=== PATIENT | female | born 1980 | race African-American/Black ===

== ENCOUNTER 2018-01-29 11:26 | Emergency (ER) | payer SELFPAY ==
[2018-01-29 11:32] VITALS: BP 148/91; PULSE 107; TEMP 98.2; BMI 38.0
[2018-01-29] MEDS ORDERED: SODIUM CHLORIDE 0.9% 500 ML INFUS.BAG IV ONE (12:09)
[2018-01-29] MEDS ORDERED: ONDANSETRON *ODT* 4 MG TABLET SL ONE (12:14)
[2018-01-29 12:29] LABS: BASO % 1.1 % (0-2.0); EOS % 0.9 % (0-4.5); MCHC 32.9 g/dl (32.0-36.0); RBC 4.76 M/mm3 (3.60-5.2); RDW 15.3 % (11.6-15.6); WHITE BLOOD COUNT 8.6 K/mm3 (4.0-10.0)
[2018-01-29 12:31] LABS: URINE APPEARANCE CLEAR; URINE BILIRUBIN NEGATIVE (NEGATIVE); URINE BLOOD NEGATIVE (NEGATIVE); URINE COLOR YELLOW; URINE GLUCOSE (UA) NEGATIVE (NEGATIVE); URINE KETONE NEGATIVE (NEGATIVE); URINE LEUK ESTERASE NEGATIVE (NEGATIVE); URINE NITRITE NEGATIVE (NEGATIVE); URINE PROTEIN NEGATIVE (NEGATIVE); URINE UROBILINOGEN NEGATIVE mg/dL (0.2-1.0)
[2018-01-29 12:42] LABS: HEMATOCRIT 38.6 % (32.4-45.2); HEMOGLOBIN 12.7 GM/dL (10.7-15.3); LYMPH % 28.8 % (8-40); MCH 26.7 pg (25.7-33.7); MEAN CELL VOLUME 81.1 fl (80-96); MEAN PLT VOLUME 7.9 fl (7.5-11.1); MONO % 8.2 % (3.8-10.2); PLATELET COUNT 388 K/MM3 (134-434)
[2018-01-29] MEDS ORDERED: ONDANSETRON *ODT* 4 MG TABLET ONE (12:47)
[2018-01-29 12:57] LABS: ALBUMIN 3.7 g/dl (3.4-5.0); ANION GAP 6 (8-16); BLOOD UREA NITROGEN 13 mg/dL (7-18); CALCIUM 8.9 mg/dL (8.5-10.1); CHLORIDE 106 mmol/L (98-107); CO2 30 mmol/L (21-32); GLUCOSE,RANDOM 86 mg/dL (74-106); POTASSIUM 3.8 mmol/L (3.5-5.1); SODIUM 142 mmol/L (136-145)
--- NOTE | 2018-01-29 13:01 | PDOC ---
History of Present Illness - General Chief Complaint: Respiratory Stated Complaint: FLU LIKE SYMPTOMS Time Seen by Provider: 01/29/18 11:52 History Source: Patient Exam Limitations: No Limitations - History of Present Illness Initial Comments: 01/29/18 12:57 Patient is a 37 year old female, denies any significant medical history currently on no medication presents with nausea, vomiting, fever. No body aches , no headache, no urinary symptoms. Upper abdominal pain. No cough, denies chest pain or shortness of breath. Past Medical History: [Denies]. Allergies: No known allergies Medications: [None] Family History: Non-contributory Social History: Denies smoking, alcohol use, or IVDU Review of Systems GENERAL/CONSTITUTIONAL: [Fever and chills. No weakness. No weight change.] HEAD, EYES, EARS, NOSE AND THROAT: [No change in vision. No ear pain or discharge. No sore throat. ] CARDIOVASCULAR: [No chest pain or shortness of breath.] RESPIRATORY: [No cough, wheezing, or hemoptysis.] GASTROINTESTINAL: [No nausea, vomiting, diarrhea or constipation. No rectal bleeding.] GENITOURINARY: [Nausea and vomiting, no diarrhea] MUSCULOSKELETAL: [No joint or muscle swelling or pain. No neck or back pain.] SKIN AND BREASTS: [No rash or easy bruising.] NEUROLOGIC: [No headache, vertigo, loss of consciousness, or loss of sensation.] PSYCHIATRIC: [No depression or anxiety.] ENDOCRINE: [No increased thirst. No abnormal weight change.] HEMATOLOGIC/LYMPHATIC: [No anemia, easy bleeding, or history of blood clots.] ALLERGIC/IMMUNOLOGIC: [No hives or skin allergy. No latex allergy.] Physical Exam: GENERAL: [The patient is awake, alert, and fully oriented, in no acute distress. ] EYES: [Pupils equal, round and reactive to light, extraocular movements intact, sclera anicteric, conjunctiva clear.] ENT: [Ears normal, nares patent, oropharynx clear without exudates. Moist mucous membranes. No uvula deviation] NECK: [Normal range of motion, supple without lymphadenopathy, JVD, or masses.] LUNGS: [Breath sounds equal, clear to auscultation bilaterally. No wheezes, and no crackles.] HEART: [Regular rate and rhythm, normal S1 and S2 without murmur, rub or gallop. ] ABDOMEN: [Soft, nontender, normoactive bowel sounds. No guarding, no rebound. No masses. No bruising or abrasions] MUSCULOSKELETAL: [Normal range of motion, no edema. No clubbing or cyanosis. No cords, erythema, or tenderness. No CVA Tenderness with fist.] NEUROLOGICAL: [Cranial nerves II through XII grossly intact. Normal speech, normal gait.] SKIN: [Warm, Dry, normal turgor, no rashes or lesions noted.] Past History - Past Medical History Allergies/Adverse Reactions: Allergies Allergy/AdvReac Type Severity Reaction Status Date / Time No Known Allergies Allergy Verified 01/29/18 11:32 Home Medications: Ambulatory Orders NK [No Known Home Medication] 01/29/18 COPD: No Other medical history: DENIES MEDICAL HX - Suicide/Smoking/Psychosocial Hx Smoking History: Current every day smoker Number of Cigarettes Smoked Daily: 4 Information on smoking cessation initiated: No Hx Alcohol Use: Yes Drug/Substance Use Hx: No *Physical Exam - Vital Signs Last Vital Signs Temp Pulse Resp BP Pulse Ox 98.2 F 107 H 16 148/91 100 01/29/18 11:29 01/29/18 11:29 01/29/18 11:29 01/29/18 11:29 01/29/18 11:29 ED Treatment Course - LABORATORY CBC & Chemistry Diagram: 01/29/18 12:05 01/29/18 12:05 - ADDITIONAL ORDERS Additional order review: Laboratory Results 01/29/18 12:05 Urine Color Yellow Urine Appearance Clear Urine pH 6.0 Ur Specific [place] 1.025 Urine Protein Negative Urine Glucose (UA) Negative Urine Ketones Negative Urine Blood Negative Urine Nitrite Negative Urine Bilirubin Negative Urine Urobilinogen Negative Ur Leukocyte Esterase Negative 01/29/18 12:05 RBC 4.76 MCV 81.1 MCHC 32.9 RDW 15.3 MPV 7.9 Neutrophils % 61.0 Lymphocytes % 28.8 Monocytes % 8.2 Eosinophils % 0.9 Basophils % 1.1 - Medications Given in the ED: ED Medications Discontinued Medications Generic Name Dose Route Start Last Admin Trade Name Freq PRN Reason Stop Dose Admin Ondansetron HCl 4 mg 01/29/18 12:14 01/29/18 12:56 Zofran Odt - SL 01/29/18 12:15 4 mg ONCE ONE Administration Sodium Chloride 1,000 ml 01/29/18 12:09 01/29/18 12:26 Normal Saline - IV 01/29/18 12:10 1,000 ml ONCE ONE Administration Medical Decision Making - Medical Decision Making 01/29/18 14:35 A/P: Patient presents with tactile fever, generalized abdominal pain worse to upper abdomen, vomiting, nausea, no diarrhea. Patient with influenza-type illness, 2 years ago her son from H1N1 patient has been exposed to influenza and thinks she may have the flu. Works in a daycare. Because of the generalized abdominal pain and nausea will perform CBC, CMP, urinalysis, urine culture, saline bolus, Hep-Lock. Laboratory Results - last 24 hr 01/29/18 01/29/18 01/29/18 12:05 12:05 12:05 WBC 8.6 RBC 4.76 Hgb 12.7 Hct 38.6 MCV 81.1 MCH 26.7 MCHC 32.9 RDW 15.3 Plt Count 388 MPV 7.9 Neutrophils % 61.0 Lymphocytes % 28.8 Monocytes % 8.2 Eosinophils % 0.9 Basophils % 1.1 Sodium 142 Potassium 3.8 Chloride 106 Carbon Dioxide 30 Anion Gap 6 L BUN 13 Creatinine 0.8 Creat Clearance w eGFR > 60 Random Glucose 86 Calcium 8.9 Total Bilirubin 0.4 AST 6 L ALT 17 Alkaline Phosphatase 71 Total Protein 7.6 Albumin 3.7 Urine Color Yellow Urine Appearance Clear Urine pH 6.0 Ur Specific [place] 1.025 Urine Protein Negative Urine Glucose (UA) Negative Urine Ketones Negative Urine Blood Negative Urine Nitrite Negative Urine Bilirubin Negative Urine Urobilinogen Negative Ur Leukocyte Esterase Negative Urine HCG, Qual Negative We are unable to test for influenza patient is made aware. CBC reveals no anemia, leukocytosis, bandemia, lymphocytosis, or neutrophilia. Platelets are within normal values at this time. CMP reveals no electrolyte imbalance, there is no transaminitis, renal function is normal, there is no hyperbilirubinemia. Urinalysis reveals no urinary tract infection. After Zofran 4 mg patient states she feels better able to eat, will give Tylenol for headache. Increase fluids to prevent dehydration, if any increased headache, nausea vomiting, unable to eat or drink, increased cough, or any other concerns return to ER I discussed the physical exam findings, ancillary test results and final diagnoses with the patient. I answered all of the patient's questions. The patient was satisfied with the care received and felt comfortable with the discharge plan and treatment plan. The patient will call to arrange follow-up and will return to the Emergency Department with any new, persistent or worsening symptoms. *DC/Admit/Observation/Transfer Diagnosis at time of Disposition: Influenza-like illness - Discharge Dispostion Disposition: HOME Condition at time of disposition: Stable Admit: No - Referrals Referrals: Yaniv Zaragoza MD [Staff Physician] - - Patient Instructions Additional Instructions: Please increase fluid intake, high protein diet. If unable to eat or drink, dizziness, lethargy, fainting, chest pain or shortness of breath return immediately to ER - Post Discharge Activity Forms/Work/School Notes: Back to Work
[2018-01-29 13:02] LABS: ALK PHOS 71 U/L (45-117); BILIRUBIN,TOTAL 0.4 mg/dL (0.2-1.0); CREATININE 0.8 mg/dL (0.55-1.02); SGOT/AST 6 U/L (15-37); SGPT/ALT 17 U/L (12-78); TOT PROT 7.6 g/dl (6.4-8.2)
[2018-01-29 13:24] LABS: HCG,QUALITATIVE URINE NEGATIVE
[2018-01-29] MEDS ORDERED: ACETAMINOPHEN 500 MG TABLET (FP) PO ONE (13:47)
[2018-01-29] MEDS ORDERED: ACETAMINOPHEN 500 MG TABLET (FP) ONE (13:50)
== END 2018-01-29 15:15 | disposition home or self-care (01) ==
LOC: JERFT 11:26
PROC: 3E0337Z Introduction of Electrolytic and Water Balance Substance into Peripheral Vein, Percutaneous Approach (ICD-10-PCS; principal; 2018-01-29)
DX: J11.1 Influenza due to unidentified influenza virus with other respiratory manifestations (principal); F17.210 Nicotine dependence, cigarettes, uncomplicated
CPT/HCPCS: 36415; 80053; 81003; 84703; 85025; 87086; 99281-25

== ENCOUNTER 2019-06-19 16:11 | Emergency (ER) | payer OTHER ==
[2019-06-19 16:37] VITALS: TEMP 99; BMI 41.5
[2019-06-19 18:12] LABS: BASO % 0.7 % (0-2.0); EOS % 0.7 % (0-4.5); HEMATOCRIT 38.6 % (32.4-45.2); HEMOGLOBIN 12.8 GM/dL (10.7-15.3); LYMPH % 27.8 % (8-40); MCH 27.2 pg (25.7-33.7); MCHC 33.2 g/dl (32.0-36.0); MEAN CELL VOLUME 81.9 fl (80-96); MEAN PLT VOLUME 8.1 fl (7.5-11.1); MONO % 6.8 % (3.8-10.2); PLATELET COUNT 362 K/MM3 (134-434); RBC 4.72 M/mm3 (3.60-5.2); RDW 14.4 % (11.6-15.6)
[2019-06-19 18:39] LABS: ALBUMIN 3.8 g/dl (3.4-5.0); ALK PHOS 93 U/L (45-117); ANION GAP 6 MMOL/L (8-16); BILIRUBIN,TOTAL 0.3 mg/dL (0.2-1); BLOOD UREA NITROGEN 12.4 mg/dL (7-18); CALCIUM 9.1 mg/dL (8.5-10.1); CHLORIDE 106 mmol/L (98-107); CO2 27 mmol/L (21-32); CREATININE 0.6 mg/dL (0.55-1.3); GLUCOSE,RANDOM 87 mg/dL (74-106); POTASSIUM 4.5 mmol/L (3.5-5.1); SGOT/AST 13 U/L (15-37); SGPT/ALT 40 U/L (13-61); SODIUM 138 mmol/L (136-145); TOT PROT 7.4 g/dl (6.4-8.2)
[2019-06-19 18:48] LABS: INR 1.04 (0.83-1.09); PROTHROMBIN TIME (PATIENT) 12.3 SEC (9.7-13.0)
--- NOTE | 2019-06-19 19:04 | PDOC ---
Documentation entered by Rhina Guzmán SCRIBE, acting as scribe for Shari Pond MD. Shari Pond MD: This documentation has been prepared by the levoneArielle Adrianna, SCRIBE, under my direction and personally reviewed by me in its entirety. I confirm that the documentation accurately reflects all work, treatment, procedures, and medical decision making performed by me. History of Present Illness - General Chief Complaint: Chest Pain Stated Complaint: CHEST PAIN Time Seen by Provider: 06/19/19 17:36 - History of Present Illness Initial Comments: The patient is a 39 year old female, with no significant PMH, who presents to the ED for evaluation of chest pain since this morning. Patient notes she began experiencing chest pain upon waking up, and symptoms progressively worsened after an emotional, stressful phone call with her this afternoon. Patient notes the chest pain is constant, most prominent sub-sternal and radiates to the left breast/side. Patient denies any exacerbating/alleviating factors, and reports associated SOB. She does note a recent 5.5 hour bus ride, and reports associated bilateral LE edema (which has subsided while in the ED). Patient notes her chest pain is mild while in the ED. Denies rash, fever, chills, nausea, vomit. Allergies: NKA, NKDA Surgical History: None reported Social History: Denies EtOH, tobacco, or illicit drug use. Past History - Past Medical History Allergies/Adverse Reactions: Allergies Allergy/AdvReac Type Severity Reaction Status Date / Time No Known Allergies Allergy Verified 06/19/19 16:28 Home Medications: Ambulatory Orders NK [No Known Home Medication] 01/29/18 COPD: No - Suicide/Smoking/Psychosocial Hx Smoking History: Never smoked Number of Cigarettes Smoked Daily: 4 Hx Alcohol Use: Yes Drug/Substance Use Hx: No Review of Systems - Review of Systems Comments:: GENERAL/CONSTITUTIONAL: No fever or chills. No weakness. HEAD, EYES, EARS, NOSE AND THROAT: No change in vision. No ear pain or discharge. No sore throat. CARDIOVASCULAR: +Chest pain. +SOB. RESPIRATORY: No cough, wheezing, or hemoptysis. GASTROINTESTINAL: No nausea, vomiting, diarrhea or constipation. GENITOURINARY: No dysuria, frequency, or change in urination. MUSCULOSKELETAL: +Bilateral LE edema.No joint or muscle pain. No neck or back pain. SKIN: No rash NEUROLOGIC: No headache, vertigo, loss of consciousness, or change in strength/ sensation. ENDOCRINE: No increased thirst. No abnormal weight change. HEMATOLOGIC/LYMPHATIC: No anemia, easy bleeding, or history of blood clots. ALLERGIC/IMMUNOLOGIC: No hives or skin allergy. *Physical Exam - Vital Signs Last Vital Signs Temp Pulse Resp BP Pulse Ox 99.0 F 100 H 18 116/76 100 06/19/19 16:26 06/19/19 16:26 06/19/19 16:26 06/19/19 16:06/19/19 16:26 - Physical Exam Comments: GENERAL: Awake, alert, and fully oriented, in no acute distress HEAD: No signs of trauma EYES: PERRLA, EOMI, sclera anicteric, conjunctiva clear ENT: Auricles normal inspection, hearing grossly normal, nares patent, oropharynx clear without exudates. Moist mucosa NECK: Normal ROM, supple, no lymphadenopathy, JVD, or masses LUNGS: Breath sounds equal, clear to auscultation bilaterally. No wheezes, and no crackles HEART: Regular rate and rhythm, normal S1 and S2, no murmurs, rubs or gallops ABDOMEN: Soft, nontender, normoactive bowel sounds. No guarding, no rebound. No masses EXTREMITIES: Normal range of motion, no edema. No clubbing or cyanosis. No cords, erythema, or tenderness NEUROLOGICAL: Cranial nerves II through XII grossly intact. Normal speech, normal gait SKIN: Warm, Dry, normal turgor, no rashes or lesions noted. ED Treatment Course - LABORATORY CBC & Chemistry Diagram: 06/19/19 17:44 06/19/19 17:44 - ADDITIONAL ORDERS Additional order review: Laboratory Results 06/19/19 06/19/19 06/19/19 17:44 17:44 17:44 PT with INR 12.30 INR 1.04 Sodium 138 Potassium 4.5 Chloride 106 Carbon Dioxide 27 Anion Gap 6 L BUN 12.4 Creatinine 0.6 Est GFR (CKD-EPI)AfAm 133.07 Est GFR (CKD-EPI)NonAf 114.82 Random Glucose 87 Calcium 9.1 Total Bilirubin 0.3 AST 13 L ALT 40 Alkaline Phosphatase 93 Troponin I < 0.02 Total Protein 7.4 Albumin 3.8 Serum , Qual Negative 06/19/19 17:44 RBC 4.72 MCV 81.9 MCHC 33.2 RDW 14.4 MPV 8.1 Neutrophils % 64.0 Lymphocytes % 27.8 Monocytes % 6.8 Eosinophils % 0.7 Basophils % 0.7
[2019-06-19 19:25] VITALS: BP 111/65; PULSE 89
--- NOTE | 2019-06-20 13:41 | EKG ---
Test Reason : Blood Pressure : / mmHG Vent. Rate : 095 BPM Atrial Rate : 095 BPM P-R Int : 152 ms QRS Dur : 074 ms QT Int : 362 ms P-R-T Axes : 050 063 046 degrees QTc Int : 454 ms NORMAL SINUS RHYTHM NORMAL ECG NO PREVIOUS ECGS AVAILABLE Confirmed by Manoj Garrido MD ([id number]) on 06/20/2019 1:41:04 PM Referred By: Confirmed By:Manoj Garrido MD
== END 2019-06-19 19:47 | disposition home or self-care (01) ==
LOC: JER 16:11
DX: R07.9 Chest pain, unspecified (principal)
CPT/HCPCS: 36415; 80053; 84484; 84703; 85025; 85379; 85610; 93005; 93010; 99285-25